=== PATIENT | female | born 1990 | race African-American/Black ===

== ENCOUNTER 2019-05-31 07:43 | Inpatient (IN) | payer OTHER ==
[~2019-05-31] VITALS: Ht 162.6 cm; Wt 90.3 kg
[2019-05-31] MEDS ORDERED: PNV1TABL76 PO (08:09)
[2019-05-31] MEDS ORDERED: METHYLERGONOVINE MALEATE 0.2 MG/ML IM PRN (08:45)
[2019-05-31] MEDS ORDERED: MISOPROSTOL 100MCG TABLET VG PRN (08:45)
[2019-05-31] MEDS ORDERED: CARBOPROST TROMETHAMINE 250 MCG/ML AMPUL IM PRN (08:45)
[2019-05-31] MEDS ORDERED: CITRIC ACID/SODIUM CITRATE SOLN 30ML UDC PO ONE (08:45)
[2019-05-31] MEDS ORDERED: DEXT 5%/LR + PITOCIN 20UNITS/L 1,000 ML IV SCH ×2 (08:45→15:05)
[2019-05-31] MEDS ORDERED: CEFAZOLIN SODIUM 1000MG/VIAL ONE (09:05)
[2019-05-31] MEDS ORDERED: MORPHINE SULFATE/PF 1MG/ML 10ML AMP ONE (09:05)
[2019-05-31] MEDS ORDERED: OXYTOCIN 10 UNITS/ML 1ML ONE ×2 (09:05→15:00)
[2019-05-31] MEDS ORDERED: ONDANSETRON HCL 4MG/2ML INJ ONE (09:05)
[2019-05-31 09:20] LABS: BASOPHILS % 0.4 % (0.0-2.0); EOSINOPHILS % 1.3 % (0.0-5.0); HEMATOCRIT. 31.1 % (36.0-48.0); HEMOGLOBIN. 10.2 g/dL (12.0-16.0); LYMPHOCYTES % 32.2 % (20.0-50.0); MEAN CORPUSCULAR HEMOGLOBIN 26.8 pg (28.0-32.0); MEAN CORPUSCULAR VOLUME 81.3 fL (81.0-99.0); MEAN PLATELET VOLUME 9.8 fl (7.4-10.4); MONOCYTES % 11.5 % (2.0-8.0); NEUTROPHILS % 54.6 % (40.0-76.0); PLATELET 156 x1000/uL (130-400); RED BLOOD CELL COUNT 3.82 mill/uL (4.2-5.4)
[2019-05-31] MEDS: LACTATED RINGERS 1,000 ML IV SCH ×2 (09:26→13:57)
[2019-05-31 09:29] LABS: INR 0.9; PARTIAL THROMBOPLASTIN TIME 25.5 sec (23.4-31.0); PROTHROMBIN TIME 9.5 sec (9.6-11.0)
[2019-05-31 09:30] LABS: CLARITY URINE TURBID (CLEAR); COLOR URINE YELLOW (YELLOW); KETONES URINE NEGATIVE (NEGATIVE); LEUKOCYTE ESTERASE URINE TRACE (NEGATIVE); NITRITE URINE NEGATIVE (NEGATIVE); OCCULT BLOOD URINE NEGATIVE (NEGATIVE); PROTEIN URINE 1+ (NEGATIVE); SPECIFIC GRAVITY URINE 1.023 (1.005-1.030); UROBILINOGEN URINE 0.2 E.U./dL (0.2-1.0)
[2019-05-31 09:49] LABS: *AMPHETAMINES SCREEN URINE NEGATIVE (NEGATIVE)
[2019-05-31 09:50] LABS: *BARBITURATES SCREEN URINE NEGATIVE (NEGATIVE); *BENZODIAZEPINES SCREEN URINE NEGATIVE (NEGATIVE); *COCAINE SCREEN URINE NEGATIVE (NEGATIVE); CANNABINOID URINE SCREEN NEGATIVE (NEGATIVE); METHADONE URINE SCREEN NEGATIVE (NEGATIVE); OPIATES URINE SCREEN NEGATIVE (NEGATIVE)
[2019-05-31 09:52] LABS: PHENCYCLIDINE URINE SCREEN NEGATIVE (NEGATIVE)
[2019-05-31 10:09] LABS: HEPATITIS B SURFACE ANTIGEN NEGATIVE
[2019-05-31] MEDS ORDERED: EPHEDRINE SULFATE 50MG/ML VIAL ONE (14:06)
[2019-05-31] MEDS ORDERED: KETOROLAC 60MG/2ML VIAL IM ONE (14:56)
[2019-05-31] MEDS ORDERED: LANOLIN OINT 7GM TUBE TOP PRN (15:15)
[2019-05-31] MEDS ORDERED: DIPHENHYDRAMINE 25MG CAPSULE PO PRN (15:15)
[2019-05-31] MEDS ORDERED: HEMORRHOIDAL SUPP PR PRN (15:15)
[2019-05-31] MEDS ORDERED: IBUPROFEN 400MG TABLET PO PRN (15:15)
[2019-05-31] MEDS ORDERED: ONDANSETRON HCL 4MG/2ML INJ IV PRN ×2 (15:15→22:00)
[2019-05-31] MEDS ORDERED: HYDROCODONE/ACETAMINOPHEN 5/325MG TABLET PO PRN (15:15)
[2019-05-31] MEDS ORDERED: BISACODYL 10MG SUPP PR PRN (15:15)
[2019-05-31] MEDS ORDERED: IBUPROFEN 800 MG in SODIUM CHLORIDE 0.9% 250 ML IV PRN (15:30)
[2019-05-31] MEDS ORDERED: MORPHINE SULFATE 2 MG/ML CPJ (NOT FOR IM USE) IV PRN ×2 (15:30)
[2019-05-31] MEDS ORDERED: MORPHINE SULFATE 10 MG/ML CPJ IV PRN (15:30)
[2019-05-31] MEDS ORDERED: DIPHENHYDRAMINE 50MG/ML VIAL IV PRN (15:30)
[2019-05-31] MEDS ORDERED: MEPERIDINE HCL/PF 25MG/ML CPJ IV PRN (15:30)
[2019-05-31] MEDS ORDERED: METOCLOPRAMIDE HCL 10MG/2ML VIAL IV PRN (15:45)
[2019-05-31 17:30] VITALS: BP 126/75
[2019-05-31] MEDS: MAGNESIUM/ALUMINUM HYDROXIDE/SIMETHICONE 30ML UDC PO SCH ×2 (17:30→21:00)
[2019-05-31] MEDS: SIMETHICONE 80MG TABLET CHEW PO SCH ×2 (17:30→21:00)
[2019-05-31 18:00] VITALS: BP 131/76
[2019-05-31] MEDS ORDERED: METOCLOPRAMIDE HCL 10MG/2ML VIAL IV SCH (18:00)
[2019-05-31 19:30] VITALS: BP 144/77
[2019-05-31 19:32] VITALS: BP 144/77
[2019-05-31] MEDS: DOCUSATE SODIUM 100MG CAPSULE PO SCH (21:00)
[2019-05-31 23:45] VITALS: BP 135/78
[2019-06-01] MEDS ORDERED: KETOROLAC 30MG/ML VIAL IV SCH (01:48)
[2019-06-01] MEDS ORDERED: MORPHINE SULFATE 4 MG/ML CPJ (NOT FOR IM USE) IV PRN (02:00)
[2019-06-01 04:00] VITALS: BP 138/80
[2019-06-01 06:54] LABS: BASOPHILS % 0.4 % (0.0-2.0); EOSINOPHILS % 0.2 % (0.0-5.0); HEMATOCRIT. 30.2 % (36.0-48.0); LYMPHOCYTES % 12.4 % (20.0-50.0); MEAN CORPUSCULAR VOLUME 81.3 fL (81.0-99.0); MEAN PLATELET VOLUME 9.2 fl (7.4-10.4); MONOCYTES % 7.6 % (2.0-8.0); NEUTROPHILS % 79.4 % (40.0-76.0); PLATELET 150 x1000/uL (130-400); RED BLOOD CELL COUNT 3.71 mill/uL (4.2-5.4)
[2019-06-01 07:42] VITALS: BP 103/50
[2019-06-01] MEDS ORDERED: KETOROLAC 30MG/ML VIAL IV PRN (08:00)
[2019-06-01] MEDS: PRENATAL VIT/FE FUMARATE/FA TABLET PO SCH (09:00)
[2019-06-01] MEDS: SIMETHICONE 80MG TABLET CHEW PO SCH ×3 (09:00→17:59)
[2019-06-01] MEDS: FERROUS SULFATE 325MG TABLET PO SCH ×3 (09:00→18:00)
[2019-06-01] MEDS: MAGNESIUM/ALUMINUM HYDROXIDE/SIMETHICONE 30ML UDC PO SCH ×3 (09:00→17:59)
[2019-06-01 16:08] VITALS: BP 107/57
[2019-06-01] MEDS: IBUPROFEN 800MG TABLET PO PRN (19:34)
[2019-06-01 20:00] VITALS: BP 116/59
[2019-06-01] MEDS: DOCUSATE SODIUM 100MG CAPSULE PO SCH (21:05)
[2019-06-01] MEDS: ACETAMINOPHEN WITH CODEINE 300/30MG TABLET PO PRN (21:10)
[2019-06-02 04:00] VITALS: BP 108/80
[2019-06-02 07:35] VITALS: BP 114/69
[2019-06-02] MEDS: PRENATAL VIT/FE FUMARATE/FA TABLET PO SCH (08:42)
[2019-06-02] MEDS: MAGNESIUM/ALUMINUM HYDROXIDE/SIMETHICONE 30ML UDC PO SCH ×4 (08:42→22:00)
[2019-06-02] MEDS: SIMETHICONE 80MG TABLET CHEW PO SCH ×4 (08:43→22:00)
[2019-06-02] MEDS: FERROUS SULFATE 325MG TABLET PO SCH ×3 (08:43→19:03)
[2019-06-02] MEDS: IBUPROFEN 800MG TABLET PO PRN (15:36)
[2019-06-02 16:00] VITALS: BP 124/75
[2019-06-02] MEDS: ACETAMINOPHEN WITH CODEINE 300/30MG TABLET PO PRN (19:34)
[2019-06-02 20:00] VITALS: BP 126/82
[2019-06-02] MEDS: DOCUSATE SODIUM 100MG CAPSULE PO SCH (22:00)
[2019-06-03 04:00] VITALS: BP 112/70
[2019-06-03] MEDS: ACETAMINOPHEN WITH CODEINE 300/30MG TABLET PO PRN (06:21)
[2019-06-03] MEDS ORDERED: IBUP-2030 MT (06:23)
[2019-06-03 07:30] VITALS: BP 133/65
== END 2019-06-03 13:10 | disposition home or self-care (01) | DRG 540 ==
LOC: OBSVTOIN 07:43 → 8 EST LDRP 07:43 → 8EST 17:26
PROVIDERS: ADMIT Obstetrics & Gynecology; ATTEND Obstetrics & Gynecology
PROC: 10D00Z1 Extraction of Products of Conception, Low, Open Approach (ICD-10-PCS; principal; 2019-05-31)
DX: O34.211 Maternal care for low transverse scar from previous cesarean delivery (principal); D64.9 Anemia, unspecified; O90.81 Anemia of the puerperium; Z3A.39 39 weeks gestation of pregnancy; Z37.0 Single live birth
CPT/HCPCS: 36415; 80305; 81003; 85025; 86592; 86703; 86762; 86850; 86900; 86920; 87340; 88307; G0378; J0690; J1885; J2274; J2405; J2590; J2765; J3490; Q0163